=== PATIENT | female | born 1960 | race Caucasian/White ===

== ENCOUNTER 2019-08-18 15:36 | Emergency (ER) | payer OTHER ==
--- NOTE | 2019-08-18 16:15 | EDM.PDOC ---
ED HPI GENERAL MEDICAL PROBLEM - General Chief Complaint: Upper Extremity Injury/Pain Stated Complaint: RT ELBOW INJURY Time Seen by Provider: 08/18/19 15:59 Source of Information: Reports: Patient, RN Notes Reviewed - History of Present Illness INITIAL COMMENTS - FREE TEXT/NARRATIVE: 59-year-old female down some steps injuring right elbow. She fell hard on the right elbow and since that injury and since the fall has been unable to move her right arm. The pain is primarily contained to the right elbow worse with any type of motion. No head neck or back pain. No LOC. Right Elbow Pain Score (Numeric/FACES): 7 - Related Data Allergies Allergy/AdvReac Type Severity Reaction Status Date / Time morphine Allergy Nausea Verified 08/18/19 15:47 Home Meds: Home Meds . [No Known Home Meds] 08/18/19 [History] Past Medical History - Past Surgical History Female Surgical History: Reports: Hysterectomy Musculoskeletal Surgical History: Reports: Shoulder Surgery, Other (See Below) Other Musculoskeletal Surgeries/Procedures:: 4 back surgery - fusion L4-5 to S1 Dermatological Surgical History: Reports: Other (See Below) Social & Family History - Tobacco Use Smoking Status *Q: Never Smoker - Caffeine Use Caffeine Use: Reports: Coffee - Recreational Drug Use Recreational Drug Use: No Review of Systems - Review of Systems Review Of Systems: See Below Eyes: Reports: No Symptoms Ears: Reports: No Symptoms Nose: Reports: Previous Injury Respiratory: Denies: Shortness of Breath Cardiovascular: Denies: Chest Pain Musculoskeletal: Reports: Joint Pain Skin: Reports: No Symptoms (Right elbow) Neurological: Denies: Numbness, Tingling ED EXAM, GENERAL - Physical Exam Exam: See Below General Appearance: Alert, Mild Distress Throat/Mouth: Normal Inspection Neck: Supple Respiratory/Chest: No Respiratory Distress, Lungs Clear Cardiovascular: Regular Rate, Rhythm Extremities: Joint Swelling, Limited Range of Motion (Right elbow), Other ( Moderate diffuse tenderness medial posterior and lateral right elbow) Neurological: Alert, Oriented, No Motor/Sensory Deficits Skin Exam: Warm, Dry, Normal Color ED TRAUMA EXTREMITY PROCEDURES - Splinting Right Upper Extremity Splint Site: R long arm Pre-Procedure NV Status: Normal Post-Procedure NV Status: Normal Splint Material: Fiberglass Splint Design: Volar Applied & Form Fitted By: Provider Provider Post-Splint Application NV Check: NV Status Normal Course - Vital Signs Last Recorded V/S: Last Vital Signs Temp 98.9 F 08/18/19 15:44 Pulse 112 H 08/18/19 15:44 Resp 18 08/18/19 15:44 BP 161/89 H 08/18/19 15:44 Pulse Ox 99 08/18/19 15:44 - Re-Assessments/Exams Free Text/Narrative Re-Assessment/Exam: 08/18/19 17:24 X-rays shows fracture of the olecranon process, there is some displacement with that and it also is mildly comminuted. See radiology report for details. 08/18/19 17:49 I did discuss this with Dr Barajas, our Orthopedist, the patient wants to drive home this weekend, have this fixed back home in [place]. Dr Barajas agrees that this is a safe plan, discharge instr. as documented. Departure - Departure Time of Disposition: 17:32 Disposition: Home, Self-Care 01 Condition: Fair Clinical Impression: Fall, Closed olecranon fracture - Discharge Information Instructions: Ulnar Fracture Referrals: PCP,Not In Area [Primary Care Provider] - Forms: ED Department Discharge Additional Instructions: Fiberglass splint, be sure to keep this dry. Elevate arm and elbow as much as you can when you can. Ar m sling as needed. Tylenol every 6-8 hours as needed for pain. See Orthopedist as soon as possible once you get home. You do have a window of time, up to 10-14 days to get this fixed. Sepsis Event Note - Evaluation Sepsis Screening Result: No Definite Risk - Focused Exam Vital Signs: Vital Signs Temp Pulse Resp BP Pulse Ox 08/18/19 15:44 98.9 F 112 H 18 161/89 H 99 Date Exam was Performed: 08/18/19 Time Exam was Performed: 19:01
--- NOTE | 2019-08-18 17:07 | CR ---
Right elbow: Four views of the right elbow were obtained. Displaced and mildly comminuted olecranon process fracture is seen. Joint effusion is seen. Soft tissue swelling is also noted. No additional fracture or other abnormality is seen. Impression: 1. Displaced and mildly comminuted olecranon process fracture. 2. Soft tissue findings as noted above. Diagnostic code #3 This report was dictated in [place] Standard Time
== END 2019-08-18 18:00 | disposition home or self-care (01) ==
LOC: JD.ED 15:36
DX: S52.021A Displaced fracture of olecranon process without intraarticular extension of right ulna, initial encounter for closed fracture (principal); Z88.5 Allergy status to narcotic agent; W10.9XXA Fall (on) (from) unspecified stairs and steps, initial encounter
CPT/HCPCS: 29105; 73080-26-RT; 73080-RT; 99282; 99283-25